=== PATIENT | male | born 1950 | race Caucasian/White ===

== ENCOUNTER 2016-06-24 08:13 | Day surgery (SDC) | payer MEDICARE, BC ==
--- NOTE | 2016-06-18 08:19 | HISTORY AND PHYSICAL E ---
History and Physical NAME: RENEA OBRIEN : 1950 AGE: 66Y ADMITTED: 06/24/2016 ROOM: PLAN: Colon exam. HISTORY: Patient seen in 2007. SURGERY: Left inguinal hernia repair. SOCIAL HISTORY: Does not smoke. Does not drink. Patient for colon screening. REFERRING PHYSICIAN: Aleksandr Orozco MD MEDICATIONS: 1. Viagra. 2. Diovan. 3. Valsartan. 4. Tramadol. 5. Tylenol. Colon 2007 shows mild diverticulosis, sigmoid diverticulosis, hemorrhoids. The patient at this time for colon screening. REVIEW OF SYSTEMS: CARDIAC: Hypertension. ENDOCRINE: Negative. GASTROINTESTINAL: Colon screening. FAMILY HISTORY: Father . Mom has history of heart disease. PHYSICAL EXAMINATION: VITAL SIGNS: Blood pressure 110/60, pulse 80, respirations 20, temp 98. HEAD, EYES, EARS, NOSE AND THROAT: Normal. NECK: Neck is supple. LUNGS: Clear. ABDOMEN: Soft. NEUROLOGIC: Exam negative. PLAN: Colon exam. DICTATING PHYSICIAN: MEGAN LEBRON M.D. [id number] [id number] PHY#: [id number] ID: [id number] JOB#: [id number] ACCT: [id number] cc:ALEKSANDR OROZCO M.D., MAHMOUD M.D. >
[~2016-06-24 08:13] MED LIST: EPINEPHRINE INJ 1 MG/10 ML DISP.SYRIN ONE; FENTANYL CITRATE INJ/PF 100 MCG/2 ML AMPUL ONE; FLUMAZENIL INJ 0.5 MG/5 ML VIAL IV ONE; GLUCAGON,HUMAN RECOMB 1 MG INJ ONE; GLYCOPYRROLATE INJ 0.4 MG/2 ML VIAL ONE; LIDOCAINE 2% JELLY 30 ML TUBE ONE; MIDAZOLAM 2 MG/2 ML INJ ONE; NALOXONE HCL INJ/PF 0.4 MG/1 ML SDV ONE; ONDANSETRON HCL INJ/PF 4 MG/2 ML SDV ONE; PROMETHAZINE HCL INJ 25 MG/1 ML VIAL ONE
[2016-06-24] MEDS: MIDAZOLAM 2 MG/2 ML INJ ONE ×3 (09:02→09:15)
[2016-06-24 10:23] VITALS: BP 129/73
--- NOTE | 2016-06-24 14:46 | DISCHARGE SUMMARY E ---
Discharge Summary NAME: RENEA OBRIEN : 1950 AGE: 66Y ADMITTED: 06/24/2016 DISCHARGED: 06/24/2016 PROCEDURE: Colonoscopy. FINAL DIAGNOSES: 1. Diminutive polyp 1 to 2 mm anal polyp. 2. External hemorrhoids. 3. Diverticulosis. 4. Diminutive 2 mm polyp sigmoid colon. DISCHARGE PLAN: Soft, low residue diet for 2 days and consideration followup colonoscopy 2 to 3 years. Continue all medications. The patient is to see us in the office in the next few days. MEDICATIONS: 1. Tramadol. 2. Tylenol. 3. Valsartan/hydrochlorothiazide 160/12.5. DICTATING PHYSICIAN: MEGAN LEBRON M.D. [id number] [id number] PHY#: [id number] ID: [id number] JOB#: [id number] ACCT: [id number] cc:ELIAN OROZCO M.D., MAHMOUD M.D. >
--- NOTE | 2016-06-24 14:53 | OPERATIVE REPORT E ---
Operative Report NAME: RENEA OBRIEN : 1950 AGE: 66Y DATE OF SURGERY: 06/24/2016 ROOM: PREOPERATIVE DIAGNOSIS: Colon screening. POSTOPERATIVE DIAGNOSES: 1. External hemorrhoids, mild. 2. Diminutive anal polyp, 2 mm. 3. Diminutive polyp, sigmoid and descending colon junction, 2 mm, in a sharp angle, benign looking. 4. Sigmoid and descending colon diverticulosis. OPERATION: Colonoscopy. SURGEON: MEGAN LEBRON M.D. ANESTHESIA: Versed 3 mg and Fentanyl 100 mcg. DESCRIPTION OF PROCEDURE: Rectal exam retroflex shows 2-mm anal polyp, small to biopsy, benign, above the anal verge. External hemorrhoids, mild. Sigmoid and descending colon diverticulosis. At the sigmoid there is a 2-mm diminutive polyps in between folds, benign looking, small, difficult to biopsy in between folds. Descending colon diverticulosis. Transverse colon normal. Ascending colon normal. Cecum normal. CONCLUSIONS: Cecum and ascending normal. Transverse diverticulosis. Descending diverticulosis. Sigmoid polyp, 2 mm, difficult to biopsy, benign looking in between folds. Anal 1-mm polyp and external hemorrhoids. PLAN: Recommend follow-up colonoscopy in 2-3 years. DICTATING PHYSICIAN: MEGAN LEBRON M.D. [id number] Y#: [id number] ID: [id number] JOB#: [id number] ACCT: [id number] cc:ELIAN OROZCO M.D., MAHMOUD M.D. >
== END 2016-06-24 10:35 | disposition home or self-care (01) ==
LOC: END 08:13
PROVIDERS: ATTEND Specialist
PROC: 0DJD8ZZ Inspection of Lower Intestinal Tract, Via Natural or Artificial Opening Endoscopic (ICD-10-PCS; principal; 2016-06-24 09:00)
DX: Z12.11 Encounter for screening for malignant neoplasm of colon (principal); K64.4 Residual hemorrhoidal skin tags; K57.30 Diverticulosis of large intestine without perforation or abscess without bleeding; D12.5 Benign neoplasm of sigmoid colon; K62.0 Anal polyp; Z79.899 Other long term (current) drug therapy; I10 Essential (primary) hypertension
CPT/HCPCS: G0121; J2250; J3010; J1610; J2405; 45378; J0171; J2310; J2550; J3490